=== PATIENT | female | born 1945 | race Caucasian/White ===

== ENCOUNTER 2025-05-28 10:11 | Emergency (ER) | payer MEDICARE, SELFPAY ==
[2025-05-28 11:44] LABS: Collection Type, Urine Clean Catch
[2025-05-28 11:49] VITALS: BP 173/81; PULSE 83; RESP 18; TEMP 36.8; O2SAT 96; BMI 29.7
--- NOTE | 2025-05-28 11:49 | PD.EDFMALE ---
ED Female Urogenital RME/HPI General Chief complaint: Urogenital-Female Stated complaint: Blood in urination with burning sensation x1 day Time Seen by Provider: 05/28/25 10:34 Arrival date/time: 05/28/25 10:11 79-year-old female patient with significant history of chronic kidney disease, came in for evaluation regarding terminal dysuria. Onset of symptoms since early this morning as patient noticed pain at the end of the urination. No fever no vomiting no pelvic pain no other complaints noted. Patient noticed blood tinged in the urine. No medication was taken prior to ER visit. Related Data Previous Rx's ?Medication ?Instructions ?Recorded ciprofloxacin HCl 500 mg tablet 500 mg PO BID #14 tabs 05/28/25 (Cipro) Allergies Allergy/AdvReac Type Severity Reaction Status Date / Time Penicillins Allergy Verified 05/28/25 10:15 Review of Systems Review of Systems Narrative Review of Systems: Review of system reviewed and within normal limits except mentioned in HPI ED Exam Narrative Physical exam: VITAL SIGNS: Reviewed. GENERAL APPEARANCE: Alert and interactive, follows commands, no acute distress, HEAD AND FACE: Non-traumatic. ENT: PERRL, pink conjunctivitis, eyelid no trauma, Mucous membrane moist. NECK: Supple, nontender, no nuchal rigidity. CHEST: No tenderness, no crepitus, no paradoxical movement, no retractions. LUNGS: Clear, well ventilated, symmetric, no rales, no wheezing, no ronchi, no stridor, good breath sounds bilaterally. HEART: Regular rate, regular rhythm, no murmur, no gallops. ABDOMEN: Soft, positive bowel sounds, nondistended, no guarding, nontender, no rebound, no masses, RECTAL: Deferred. GENITAL: Deferred. NEUROLOGICAL: Gross motor function intact sensory function intact, Appropriate for age. MUSCULOSKELETAL: low back nontender, full range of motion. EXTREMITIES: Nontender, full range of motion. SKIN: Color pink, dry, no rash, no lacerations, no abrasions, no contusions. LYMPHATICS: Deferred. Course Quality Measures none Orders Category Date Time Status Urinalysis Stat Lab 05/28/25 11:08 Completed Ciprofloxacin HCl [Ciprofloxacin] Med 05/28/25 14:29 Once 500 mg PO X1 ONE Lidocaine 1% Vial 20 ml [Xylocaine 1% 20 ML] Med 05/28/25 12:55 Discontinued 2 ml INFL X1 ONE cefTRIAXone [Rocephin] 1,000 mg Med 05/28/25 12:55 Discontinued Lidocaine 1% Pf Vial 5ml [Xylocaine 1% Pf 5 ml] 2.1 ml IM X1 Vital Signs Vital signs: Vital Signs Temperature 98.3 F 05/28/25 11:49 Pulse Rate 83 05/28/25 11:49 Respiratory Rate 18 05/28/25 11:49 Blood Pressure 173/81 H 05/28/25 11:49 Pulse Oximetry (%) 96 05/28/25 11:49 Oxygen Delivery Method Room Air 05/28/25 11:49 Urogenital - Female MDM Narrative MDM Narrative:: 79-year-old female patient with significant history of chronic kidney disease, came in for evaluation regarding terminal dysuria. Onset of symptoms since early this morning as patient noticed pain at the end of the urination. No fever no vomiting no pelvic pain no other complaints noted. Patient noticed blood tinged in the urine. No medication was taken prior to ER visit. Urinalysis significant for UTI. Patient received Cipro p.o. Patient is allergic to penicillin. Patient blood pressure was noted to be 194/71 however patient told me that she is taking blood pressure medication. I am not going to give her any medication for her blood pressure at this time. Patient was advised to closely follow-up with PCP and discussed the elevated blood pressure may be changes in blood pressure medication with PCP. Patient agrees with the plan. She is stable for discharge home on Cipro Patient data External records reviewed:: None Clinical information provided by:: none Social determinants that could affect healthcare access:: none Patient has the following chronic illnesses:: Hypertension How is presenting disease/condition affected by chronic disease/condition?: uneffected by Evaluation data The following diagnostics were reviewed and interpreted by me:: lab results Lab and/or radiology exams considered but not ordered:: None Interpretation Summary: UA significant for UTI Medications / Prescriptions Medications or Prescriptions considered but not ordered:: None Medication administrations:: Medication Administration History Ciprofloxacin (Ciprofloxacin Hcl 250 Mg Tablet) 500 mg PO X1 ONE Stop: 05/28/25 14:30 Discontinued Medications Ceftriaxone Sodium 1,000 mg/ (Lidocaine HCl 2.1 ml) 0 mg IM X1 ONE Stop: 05/28/25 12:56 Lidocaine HCl (Lidocaine Hcl 1% 20 Ml Vial) 2 ml INFL X1 ONE Stop: 05/28/25 12:56 Cipro Consultations Consultation(s) initiated? (list below): No Diagnosis Urogenital Female Differential Diagnosis: urinary tract infection and cervicitis Most likely diagnosis given after review of the tests above:: uti Admission Indicated Admission indicated?: not indicated Admission Request Was there a request for admission?: No Disposition Plan Disposition Plan: Discharge Discharge Attestation Discharge Attestation: The patient and all family members were given an opportunity to ask questions and understood the discharge instructions. Discharge instructions specifically effects, indications for sooner follow up or return to the emergency department, and the expected course of current diagnosis. Patient condition: Stable Discharge Plan Plan Patient Disposition: HOME (Self Care) Discharge Disposition comment: Stable Prescriptions/Referrals Prescriptions/Med Rec: New ciprofloxacin HCl [Cipro] 500 mg tablet 500 mg PO BID Qty: 14 0RF Referrals: Ryne Tolbert EDUCATION PROGRAM COORDINATOR [Primary Care Provider] - In 1 week Problem List Clinical Impression: Urinary tract infection Patient/Caregiver Discharge Instructions Discharge Activity: activity as tolerated Education Materials: Understanding Urinary Tract ... Additional Instructions: Thank you for the opportunity for serving you today. You are stable for discharged . You are advised to: Follow-up with your PCP in 1 to 2 days Return to ED for worsening of symptoms Increase oral fluids Take medication as prescribed Print Language: Upper Sorbian Stand Alone Forms: [employer] Award Info., Patient Portal Info Letter REILLY/JOSIAS Supervising Physician REILLY/JOSIAS Supervising Physician: MD Manoj
[2025-05-28 12:21] LABS: Bacteria,Urine 2+; Bilirubin,Urine Negative (Negative); Blood,Urine 3+ (Negative); Budding Yeast,Urine Present; Glucose, Urine 4+ (Negative); Ketones,Urine Negative (Negative); Leukocyte Esterase,Urine Positive (Negative); Nitrite,Urine Negative (Negative); PH,Urine 5.5 (5.0-7.0); Protein,Urine 1+ (Neg - Trace); RBC,Urine 226 /hpf (0-3); Specific Gravity,Urine 1.006 (1.001-1.035); Squamous Epithelial Cell,Urine 1 /hpf (0-5); Urobilinogen,Urine Negative mg/dL (0.0-1.0); WBC,Urine 133 /hpf (0-5)
[2025-05-28 12:31] LABS: Clarity,Urine Hazy (Clear/Hazy); Color,Urine Lt-Red (Lt Yel-Yel)
[2025-05-28 14:25] VITALS: BP 194/71; PULSE 72; RESP 16; TEMP 36.7; O2SAT 100
[2025-05-28] MEDS: CIPROFLOXACIN HCL 250 MG TABLET 500 MG PO (14:34)
== END 2025-05-28 14:40 | disposition home or self-care (01) ==
PROVIDERS: Nurse Practitioner Family; Emergency Provider Emergency Medicine; PCP Nurse Practitioner Primary Care
DX: N39.0 Urinary tract infection, site not specified (principal)
CPT/HCPCS: 81001; 99282; A9270